=== PATIENT | male | born 1980 | race Two or more races ===

== ENCOUNTER 2017-09-13 00:01 | Emergency (ER) | payer OTHER ==
[~2017-09-13] VITALS: Ht 172.7 cm; Wt 79.8 kg
[2017-09-13] MEDS ORDERED: ZANTAC300 MG PO (06:12)
[2017-09-13] MEDS ORDERED: DICY20TA PO (06:12)
== END 2017-09-13 06:16 | disposition home or self-care (01) ==
LOC: ER 00:01
DX: K52.9 Noninfective gastroenteritis and colitis, unspecified (principal); E86.0 Dehydration